=== PATIENT | male | born 1950 | race Caucasian/White ===

== ENCOUNTER → 2016-06-20 | Outpatient (CLI) | payer MEDICARE, OTHER ==
[~2016-06-20] MED LIST: ISOVUE-370 76% 100ML VIAL (Q9967) As Ordered ONE
--- NOTE | 2016-06-20 11:05 | REP ---
Clinical: Pulmonary nodule. Comparison: None. Technique: Axial contrast enhanced images from the thoracic inlet to the upper abdomen using 100 ml Isovue 370 intravenous contrast material with coronal and sagittal re-formations. Findings: The bilateral lung rodriguez are well-aerated, symmetric, and clear. No acute pulmonary parenchymal consolidation, nodule or mass lesion is appreciated. No pleural effusion/reaction or pneumothorax. The mediastinum demonstrates normal heart/pericardium and thoracic aorta. No axillary, hilar, or mediastinal adenopathy. Tracheobronchial tree is patent. Thyroid gland is unremarkable. Evidence for old healed posteromedial right rib fractures. Upper abdomen demonstrates normal bilateral adrenal glands. Impression: Normal contrast enhanced chest CT. No pulmonary nodule identified. No acute mediastinal or pleuroparenchymal process. Evidence for old healed posteromedial right rib fractures. Signed by Asif Ellison MD 06/20/2016 10:57 A
--- NOTE | 2016-06-20 11:09 | REP ---
Clinical: Chronic medical renal disease. Technique: Real time orta scale and color evaluation using curved array transducer. Findings: The kidneys are normal in contour, size, echogenicity, and reniform shape without hydronephrosis, nephrolithiasis, cystic or renal mass lesion. No perinephric fluid collections are identified. Mildly prominent central sinus fat is appreciated bilaterally and consistent with chronic medical renal disease. Right kidney measures 11.0 x 6.4 x 5.4 cm. Left kidney measures 12.6 x 4.8 x 6.2 cm. Bladder is under distended but grossly unremarkable. Enlarged heterogeneous prostate gland measures 5.8 cm maximal diameter. Impression: 1. Evidence for chronic medical renal disease without hydronephrosis or cystic changes. 2. Enlarged heterogeneous prostate gland. Signed by Asif Ellison MD 06/20/2016 11:01 A
--- NOTE | 2016-06-20 11:13 | REP ---
Clinical: Bilateral inguinal pain. Technique: Real time orta scale and color Doppler evaluation using linear high frequency transducer. Findings: The testicles demonstrate bilateral prominent rete testis with cystic changes measuring up to 10 mm in the left testicle and 6 mm in the right testicle. The bilateral testicles and epididymi are otherwise normal in contour, size, echogenicity, and vascularity without torsion, acute infectious/inflammatory process, or mass lesion. Mild bilateral hydroceles are likely chronic. Bilateral partially thrombosed varicoceles noted measuring up to 4.6 mm diameter. Small fat containing inguinal hernias noted bilaterally. Right testicle measures 5.0 x 2.5 x 3.4 cm. Left testicle measures 4.8 x 2.5 x 3.3 cm Impression: 1. Prominent right date testes with cystic changes along with mild bilateral hydroceles and partially thrombosed varicoceles likely representing chronic nonacute changes. 2. Small fat containing bilateral inguinal hernias. Signed by Asif Ellison MD 06/20/2016 11:05 A
== END ==
LOC: M RAD 09:14
PROVIDERS: ATTEND Family Medicine
DX: N18.3 Chronic kidney disease, stage 3 (moderate) (principal); N45.1 Epididymitis; R91.1 Solitary pulmonary nodule; N40.0 Benign prostatic hyperplasia without lower urinary tract symptoms; K40.90 Unilateral inguinal hernia, without obstruction or gangrene, not specified as recurrent; N50.9 Disorder of male genital organs, unspecified
CPT/HCPCS: 71260; 76775; 76857; 76870; 93976; Q9967

== ENCOUNTER → 2016-07-11 | Outpatient (CLI) | payer MEDICARE, OTHER | LOC: M LAB 13:52 | PROVIDERS: ATTEND Nurse Practitioner Family | DX: Z12.5 Encounter for screening for malignant neoplasm of prostate (principal) | CPT/HCPCS: 36415; G0103 ==

== ENCOUNTER → 2016-07-17 | Outpatient (CLI) | payer MEDICARE, OTHER ==
[~2016-07-17] MED LIST changes: +ALFU10TA2 PO; +ASPI81TA85 PO; +B-12500T2 PO; +BENI40TA7 PO; -ISOVUE-370 76% 100ML VIAL (Q9967) As Ordered ONE; +LEVO100T5 PO; +METF500T PO; +ROSU10TA PO; +VITA1CAP25 PO; +VITA2000 PO; +[UNRECOGNIZED DRUG - CODE] PO
--- NOTE | 2016-07-17 16:50 | ECGEPIP ---
Stationary ECG Study [facility] Test Date: 2016-07-17 Pat Name: IRMA KUO Department: Room: - Gender: M Health And Wellness Manager: : 1950 Requested By: Jose Blanco Order Number: [id number] Reading MD: Lupe Martínez Measurements Intervals [place] Rate: 53 P: 19 TX: 209 QRS: -36 QRSD: 109 T: 51 QT: 415 QTc: 390 Interpretive Statements SINUS BRADYCARDIA FIRST DEGREE BLOCK MARKED LEFT AXIS DEVIATION Left anterior fascicular block NO PRIOR Electronically Signed On 07-17-2016 16:49:45 EST by Lupe Martínez
== END ==
LOC: M EKG 15:34
PROVIDERS: ATTEND Anesthesiology
DX: I10 Essential (primary) hypertension (principal)

== ENCOUNTER → 2016-07-26 | Day surgery (SDC) | payer MEDICARE, OTHER ==
[~2016-07-26] VITALS: Ht 175.3 cm; Wt 97.5 kg
[~2016-07-26] MED LIST changes: +BUPIVACAINE/EPIN 0.25% 30 ML VIAL As Ordered ONE; +BUPIVACAINE/EPIN 0.25% 30 ML VIAL XX ONE; +GLYCOPYRROLATE INJ 0.2 MG/ML 2 ML VIAL As Ordered ONE; +LR 1,000 ML IV SCH; +METOCLOPRAMIDE INJ 10MG/2ML VIAL (J2765) As Ordered ONE; +MIDAZOLAM INJ 2 MG/2 ML VIAL (J2250) As Ordered ONE; +MORPHINE 2 MG/ML 1ML SYRINGE IV PRN; +NEOSTIGMINE 1MG/ML 5 ML SYRINGE (J2710) As Ordered ONE; +NORCO, ANEXSIA 5/325MG TABLET (HYDROcodone/ACETAMINOPHEN) PO PRN; +ONDANSETRON 4MG/2ML VIAL (J2405) IV PRN; +PERCOCET 5MG/325MG TAB PO PRN; +ceFAZolin SOD 1 GM in D5W MINI-BAG PLUS 50 ML IV ONE; +dexameTHASONE 4 MG/ML 1ML VIAL (J1100) As Ordered ONE; +fentaNYL 100 MCG/2 ML INJECTION (J3010) IV PRN; +fentaNYL 250 MCG/5 ML INJECTION (J3010) As Ordered ONE
[2016-07-26 13:25] VITALS: BP 128/70
--- NOTE | 2016-07-26 16:51 | RO ---
DATE OF PROCEDURE: 07/26/2016 PREPROCEDURE DIAGNOSIS: Bilateral inguinal hernias. POSTPROCEDURE DIAGNOSIS: Bilateral inguinal hernias (indirect/lipoma of the cord). OPERATIVE PROCEDURE: Laparoscopic bilateral inguinal hernia repair (TEPP). SURGEON: Chauncey Evans MD EARLY MORNING: ANESTHESIA: General endotracheal. ESTIMATED BLOOD LOSS: Minimal. FLUIDS: Crystalloid. DESCRIPTION OF PROCEDURE: The patient was brought to the operating room and was given general anesthesia. After adequate anesthesia and preoperative antibiotics were given, the patient was prepped and draped in the usual sterile fashion. Next a periumbilical incision was made with skin knife. Blunt dissection was carried down to the fascia. The fascia was incised longitudinally with electrocautery. The rectus muscle was retracted anteriorly and laterally and the balloon dissector was placed in the preperitoneal space, insulated under direct visualization. A stationary balloon was placed in the infraumbilical site and insufflated to 15 mm of pressure and two 5 mm trocars were placed along the midline. Next, the loose areolar tissue in the left inguinal area was taken down using cautery. This was taken down off Coopers toward the internal ring. The patient had a great deal of fatty tissue in general and thus the valley between the bladder and the vessels was a little bit difficult to obtain and move the fatty tissue out of the way and there was also a persistent posterior fascia semi erect line of Royce which was a lot lower than expected and finished at the internal ring. Thus, this needed to be incised, the fascia in this area to open up in the preperitoneal space and then attention was toward the cord structures. Cord structures were evaluated and there was a small lipoma of the cord that was mobilized back into the preperitoneal space. It was not transected at its base. There was the peritoneum which was eventually mobilized off the surrounding tissue and then mobilized of the vas where the vas dove deep into the pelvis. Once the valley between the vessels and the bladder was made slightly deeper to allow for the mesh to be placed adequately, the right inguinal area was dissected out. There was a much larger lipoma of the cord on the right side. This eventually was mobilized out of the cord structures. There was no significant internal hernia on the side. The peritoneum was mobilized down off the cord structures and the vas where it dove deep into the pelvis. Once again, the valley between the vessels and the bladder was created using the hook cautery on the loose areolar tissue and posterior to the Jasvir's ligament. The right medium sized maximum mesh was tacked in with a AbsorbaTack and was in good placement. This tacked along Jasvir's pubis laterally on the tail and anteriorly on the rectus muscle. This was repeated on the left hand side, however, a small vessel was tacked on Coopers and caused some oozing in that area. This was irrigated until it seemed relatively clear, but was slightly moister than I would like it to be. No significant oozing was appreciated, but I did put some fibrin glue in this area after the 3D Max mesh medium was placed in the left inguinal area. This was tacked in as I stated previously with AbsorbaTack. The preperitoneal space was desufflated under direct visualization. #0 Vicryl was used to close the fascia at the umbilicus and all incisions were closed with #4-0 Vicryl. Steri-Strips and a dry sterile dressing was applied. The patient was awakened, extubated and brought to the recovery room awake, alert and hemodynamically stable. Sponge and needle counts correct times two.
== END | disposition home or self-care (01) ==
LOC: M SDC 06:45
PROVIDERS: ATTEND Surgery
DX: K40.20 Bilateral inguinal hernia, without obstruction or gangrene, not specified as recurrent (principal); D17.6 Benign lipomatous neoplasm of spermatic cord; E11.9 Type 2 diabetes mellitus without complications; E78.5 Hyperlipidemia, unspecified; E03.9 Hypothyroidism, unspecified; I10 Essential (primary) hypertension; Z79.82 Long term (current) use of aspirin; Z79.899 Other long term (current) drug therapy; Z87.891 Personal history of nicotine dependence
CPT/HCPCS: 49650; A6024; C1781; J0690; J1100; J2250; J2710; J2765; J3010

== ENCOUNTER → 2016-08-28 | Outpatient (REF) | payer MEDICARE, OTHER ==
[~2016-08-28] MED LIST changes: -BUPIVACAINE/EPIN 0.25% 30 ML VIAL As Ordered ONE; -BUPIVACAINE/EPIN 0.25% 30 ML VIAL XX ONE; +CRES10TA32 PO; -GLYCOPYRROLATE INJ 0.2 MG/ML 2 ML VIAL As Ordered ONE; -LR 1,000 ML IV SCH; -METOCLOPRAMIDE INJ 10MG/2ML VIAL (J2765) As Ordered ONE; -MIDAZOLAM INJ 2 MG/2 ML VIAL (J2250) As Ordered ONE; -MORPHINE 2 MG/ML 1ML SYRINGE IV PRN; -NEOSTIGMINE 1MG/ML 5 ML SYRINGE (J2710) As Ordered ONE; -NORCO, ANEXSIA 5/325MG TABLET (HYDROcodone/ACETAMINOPHEN) PO PRN; -ONDANSETRON 4MG/2ML VIAL (J2405) IV PRN; -PERCOCET 5MG/325MG TAB PO PRN; -ROSU10TA PO; -ceFAZolin SOD 1 GM in D5W MINI-BAG PLUS 50 ML IV ONE; -dexameTHASONE 4 MG/ML 1ML VIAL (J1100) As Ordered ONE; -fentaNYL 100 MCG/2 ML INJECTION (J3010) IV PRN; -fentaNYL 250 MCG/5 ML INJECTION (J3010) As Ordered ONE
[2016-08-28 12:23] LABS: ALBUMIN 3.6 GM/DL (3.2-5.2); ALBUMIN/GLOBULIN RATIO 1.24 (1.00-1.93); BILIRUBIN,TOTAL 1.1 MG/DL (0.2-1.0); CALCIUM LEVEL 8.5 MG/DL (8.8-10.2); CREATININE FOR GFR 1.31 MG/DL (0.70-1.30); FREE T4 1.18 NG/DL (0.76-1.46); GLOMERULAR FILTRATION RATE 58.3 (>49); POTASSIUM SERUM 4.5 MEQ/L (3.5-5.1); TOTAL PROTEIN 6.5 GM/DL (6.4-8.2)
== END ==
LOC: M SFHCPLAZ 08:33
PROVIDERS: ATTEND Family Medicine
DX: N18.3 Chronic kidney disease, stage 3 (moderate) (principal); E03.9 Hypothyroidism, unspecified; R73.01 Impaired fasting glucose; E55.9 Vitamin D deficiency, unspecified; Z23 Encounter for immunization
CPT/HCPCS: 36415; 80053; 82306; 83036; 83970; 84439; 84443; 90670; G0009

== ENCOUNTER → 2016-10-16 | Outpatient (REF) | payer MEDICARE, OTHER ==
[2016-10-16 12:20] LABS: ALBUMIN 3.6 GM/DL (3.2-5.2); ALBUMIN/GLOBULIN RATIO 1.16 (1.00-1.93); BILIRUBIN,TOTAL 1.4 MG/DL (0.2-1.0); CALCIUM LEVEL 8.7 MG/DL (8.8-10.2); CREATININE FOR GFR 1.33 MG/DL (0.70-1.30); GLOMERULAR FILTRATION RATE 57.3 (>49); POTASSIUM SERUM 4.7 MEQ/L (3.5-5.1); TOTAL PROTEIN 6.7 GM/DL (6.4-8.2)
== END ==
LOC: M SFHCPLAZ 11:39
PROVIDERS: ATTEND Family Medicine
DX: I86.1 Scrotal varices (principal); Z12.5 Encounter for screening for malignant neoplasm of prostate
CPT/HCPCS: 36415; 80053; G0463

== ENCOUNTER → 2016-10-17 | Outpatient (CLI) | payer MEDICARE, OTHER ==
[~2016-10-17] MED LIST changes: +ISOVUE-370 76% 100ML VIAL (Q9967) As Ordered ONE
--- NOTE | 2016-10-17 15:19 | REP ---
CT ANGIOGRAM OF THE CHEST WITH IV CONTRAST: HISTORY: Ascending thoracic aortic aneurysm. Comparison CT study is from June 20, 2016. CONTRAST DOSE: 75 mL of Isovue-[address] TECHNIQUE: Helical scanning is acquired and overlapping 1.5 mm and contiguous 3 mm axial images are reformatted. In addition, a 3D work station is deployed to generate thick slab maximum intensity projection images in sagittal and coronal imaging projections. CT PULMONARY ANGIOGRAPHIC FINDINGS: There is good opacification of the thoracic aorta. It shows homogeneous enhancement and normal course. The ascending thoracic aorta at the level of the right main pulmonary artery measures 3.9 cm in AP dimension. This is unchanged from the recent prior CT study of June 20, 2016. There is also good opacification of the pulmonary arterial tree. There is no CT evidence of pulmonary embolism. There is mild vascular calcification of the transverse aorta, but no aneurysm is appreciated. Coronal and sagittal multiplanar reformation images show no additional abnormality. Great vessel origins are intact. Incidental note is made of the left vertebral artery taking a direct aortic origin which is a fairly common normal variant. The left vertebral artery is smaller and its origin is calcific. No adrenal lesion is seen. The abdominal aorta is normal in caliber. Celiac and superior mesenteric axes are patent. The right renal artery is duplicated. The left renal artery is duplicated. No renal artery stenosis is seen. The proximal inferior mesenteric artery arises at the inferior margin of the field of view and appears intact. No infiltrate, mass, or atelectasis is seen in the lung rodriguez. IMPRESSION: 1. Ascending aorta measures 3.9 cm in AP dimension. No thoracic or abdominal aortic aneurysm seen. 2. Direct origin left vertebral artery from the transverse aorta. 3. Duplicated bilateral renal arteries. Signed by Selvin Stokes MD 10/17/2016 04:00 P
== END ==
LOC: M RAD 08:12
PROVIDERS: ATTEND Family Medicine
DX: I71.2 Thoracic aortic aneurysm, without rupture (principal)
CPT/HCPCS: 71275; Q9967

== ENCOUNTER → 2017-01-14 | Outpatient (REF) | payer MEDICARE, OTHER ==
[~2017-01-14] MED LIST changes: +BENI40TA30 PO; -BENI40TA7 PO; -ISOVUE-370 76% 100ML VIAL (Q9967) As Ordered ONE; -METF500T PO; +METF500T13 PO
[2017-01-14 16:54] LABS: BASO % 0.7 % (0.0-1.0); EOS # 0.2 K/mm3 (0.0-0.50); EOS % 3.7 % (0.0-3.0); LARGE UNSTAINED CELL # 0.1 K/mm3 (0.0-0.4); LARGE UNSTAINED CELL % 1.8 % (0.0-4.0); LYMPH # 1.9 K/mm3 (1.5-4.5); MEAN CORPUSCULAR HEMOGLOBIN 30.7 pg (27.0-33.0); MEAN CORPUSCULAR HGB CONC 34.8 g/dl (32.0-36.5); MEAN CORPUSCULAR VOLUME 88.2 fl (80.0-96.0); MONO # 0.3 K/mm3 (0.0-0.8); MONO % 5.3 % (0.0-5.0); NEUTROPHILS # 2.8 K/mm3 (1.8-7.7); NEUTROPHILS % 53.5 % (36.0-66.0); PLATELET COUNT, AUTOMATED 199 k/mm3 (150-450); RED CELL DISTRIBUTION WIDTH 13.6 % (11.5-14.5); WHITE BLOOD COUNT 5.2 K/mm3 (4.0-10.0)
[2017-01-14 17:13] LABS: VITAMIN B12 LEVEL 769 PG/ML (247-911)
[2017-01-14 18:00] LABS: ALBUMIN 3.7 GM/DL (3.2-5.2); ALBUMIN/GLOBULIN RATIO 1.19 (1.00-1.93); ALKALINE PHOSPHATASE 57 U/L (45-117); ALT/SGPT 42 U/L (12-78); ANION GAP 8 MEQ/L (8-16); AST/SGOT 26 U/L (15-37); BILIRUBIN,DIRECT 0.3 MG/DL (0.0-0.2); BILIRUBIN,TOTAL 1.6 MG/DL (0.2-1.0); BLOOD UREA NITROGEN 14 MG/DL (7-18); CALCIUM LEVEL 8.6 MG/DL (8.8-10.2); CARBON DIOXIDE LEVEL 27 MEQ/L (21-32); CHLORIDE LEVEL 105 MEQ/L (98-107); CREATININE FOR GFR 1.06 MG/DL (0.70-1.30); FERRITIN 149 NG/ML (26-388); GLOMERULAR FILTRATION RATE > 60.0 (>49); GLUCOSE, FASTING 80 MG/DL (80-110); PERCENT SATURATION 49.5 % (19.7-50.0); SODIUM LEVEL 140 MEQ/L (136-145); TOTAL IRON BINDING CAPACITY 277 UG/DL (250-450); TOTAL PROTEIN 6.8 GM/DL (6.4-8.2)
[2017-01-17 11:50] LABS: PRETREATED FOLATE FOR RBCFOL 7.5 NG/ML
== END ==
LOC: M SFHCPLAZ 11:46
PROVIDERS: ATTEND Family Medicine
DX: G31.84 Mild cognitive impairment of uncertain or unknown etiology (principal); E80.4 Gilbert syndrome; E55.9 Vitamin D deficiency, unspecified; R17 Unspecified jaundice; G47.33 Obstructive sleep apnea (adult) (pediatric); N40.1 Benign prostatic hyperplasia with lower urinary tract symptoms; R73.01 Impaired fasting glucose; K63.5 Polyp of colon; I71.2 Thoracic aortic aneurysm, without rupture; K40.20 Bilateral inguinal hernia, without obstruction or gangrene, not specified as recurrent; N45.1 Epididymitis; R91.1 Solitary pulmonary nodule; I12.9 Hypertensive chronic kidney disease with stage 1 through stage 4 chronic kidney disease, or unspecified chronic kidney disease; N18.3 Chronic kidney disease, stage 3 (moderate); K21.9 Gastro-esophageal reflux disease without esophagitis; E03.9 Hypothyroidism, unspecified; E78.2 Mixed hyperlipidemia; E66.3 Overweight; Z87.891 Personal history of nicotine dependence; Z68.31 Body mass index [BMI] 31.0-31.9, adult
CPT/HCPCS: 80053; 82140; 82248; 82306; 82607; 82728; 82747; 83550; 83970; 85025; 86301; G0463

== ENCOUNTER → 2017-01-20 | Outpatient (CLI) | payer MEDICARE, OTHER ==
--- NOTE | 2017-01-20 08:56 | REP ---
Abdominal right upper quadrant ultrasound: There is no cholelithiasis, gallbladder wall thickening or pericholecystic fluid. There is no intrahepatic or extrahepatic biliary duct dilatation, the common duct measures 4.4 mm in diameter. There is mild hepatic parenchymal echogenicity compatible with hepato steatosis. There is no hepatic mass. The visualized portion of the pancreatic head is unremarkable. The pancreatic body and tail are obscured by bowel gas. The right kidney is normal size measuring 10.9 cm craniocaudad length. There is no right renal calculus, mass, cyst or hydronephrosis. Impression: Mild hepatic parenchymal echogenicity compatible with hepato steatosis. Otherwise, negative right upper quadrant ultrasound. The body and tail of the pancreas are obscured by bowel gas. Signed by Rony Caicedo MD 01/20/2017 08:47 A
== END ==
LOC: M RAD 07:42
PROVIDERS: ATTEND Family Medicine
DX: E80.4 Gilbert syndrome (principal)

== ENCOUNTER → 2017-01-20 | Outpatient (CLI) | payer MEDICARE, OTHER ==
--- NOTE | 2017-01-23 13:22 | SLEEPHOME ---
DATE OF STUDY: 01/20/2017 ORDERED BY: Dr. Miller Diagnostic home sleep testing was performed due to concern for the obstructive sleep apnea. For testing, a NOX-T3 respiratory monitoring device was used. Continuous record was made of pulse, oxygen saturation, chest and abdominal strain, and body position. 9 hours and 59 minutes of data were reviewed. There were 7 hours and 5 minutes identified as time in bed. During the interval marked time in bed, there were 114 respiratory events identified of 10 seconds in duration or greater for a respiratory event index of 16.1. The events were primarily obstructive. Baseline pulse rate was 49 beats per minute. Pulse rate ranged 35 to 70. Baseline saturation 90.5%. Lowest oxygen saturation 84%. Testing was performed in both the supine and nonsupine positions. IMPRESSION: Abnormal home sleep testing with repetitive respiratory events and oxygen desaturation to 84% with a respiratory event index of 16.1 is consistent with the obstructive sleep apnea syndrome. RECOMMENDATION: The patient should be referred for a formal sleep evaluation and in-laboratory pressure titration given the significant oxygen desaturations and frequency of event.
== END ==
LOC: M SLEEP HO 08:14
PROVIDERS: ATTEND Family Medicine
DX: G47.33 Obstructive sleep apnea (adult) (pediatric) (principal)
CPT/HCPCS: 76705; G0399

== ENCOUNTER → 2017-02-12 | Outpatient (CLI) | payer MEDICARE, OTHER ==
--- NOTE | 2017-02-12 16:32 | REP ---
Clinical: Abdominal pain with elevated bilirubin levels. Technique: Standard noncontrast MRCP sequencing. Findings: The gallbladder, intrahepatic and extrahepatic biliary ductal system is normal. No gallstones, choledocholithiasis, pericholecystic inflammatory changes/fluid or other biliary tract abnormalities identified. Small left renal cysts measure up to 15 mm. Impression: Essentially normal MRCP examination. Signed by Asif Ellison MD 02/12/2017 04:23 P
== END ==
LOC: M RAD 14:47
PROVIDERS: ATTEND Family Medicine
DX: R17 Unspecified jaundice (principal); N28.1 Cyst of kidney, acquired

== ENCOUNTER → 2017-04-24 | Outpatient (REF) | payer MEDICARE, OTHER | LOC: M SFHCPLAZ 10:59 | PROVIDERS: ATTEND Family Medicine | DX: G45.4 Transient global amnesia (principal); E03.9 Hypothyroidism, unspecified; K21.9 Gastro-esophageal reflux disease without esophagitis; N18.3 Chronic kidney disease, stage 3 (moderate); E11.40 Type 2 diabetes mellitus with diabetic neuropathy, unspecified; E55.9 Vitamin D deficiency, unspecified; E78.2 Mixed hyperlipidemia; Z23 Encounter for immunization | CPT/HCPCS: 36415; 86850; 86900; 86901; 90662; G0008 ==

== ENCOUNTER → 2017-06-20 | Outpatient (CLI) | payer MEDICARE ==
[2017-06-20 09:44] LABS: ALBUMIN 3.7 GM/DL (3.2-5.2); ALBUMIN/GLOBULIN RATIO 1.16 (1.00-1.93); ALKALINE PHOSPHATASE 67 U/L (45-117); ALT/SGPT 37 U/L (12-78); ANION GAP 4 MEQ/L (8-16); AST/SGOT 29 U/L (7-37); BILIRUBIN,TOTAL 1.3 MG/DL (0.2-1.0); BLOOD UREA NITROGEN 16 MG/DL (7-18); C REACTIVE PROTEIN QUANTITATIV < 0.30 MG/DL (0.00-0.30); CALCIUM LEVEL 8.6 MG/DL (8.8-10.2); CARBON DIOXIDE LEVEL 30 MEQ/L (21-32); CHLORIDE LEVEL 106 MEQ/L (98-107); CHOLESTEROL LEVEL 143 MG/DL (<200); CHOLESTEROL RISK RATIO 3.325 (<5); CPK CREATINE PHOSPHOKINASE 130 U/L (39-308); CREATININE FOR GFR 1.31 MG/DL (0.70-1.30); FREE T4 1.11 NG/DL (0.76-1.46); GLOMERULAR FILTRATION RATE 58.1 (>49); GLUCOSE, FASTING 107 MG/DL (80-110); HDL CHOLESTEROL 43 MG/DL (>40); LDL CHOLESTEROL 61.6 MG/DL (<100); NON-HDL-C 100 MG/DL; POTASSIUM SERUM 4.2 MEQ/L (3.5-5.1); SODIUM LEVEL 140 MEQ/L (136-145); TOTAL PROTEIN 6.9 GM/DL (6.4-8.2); TRIGLYCERIDES LEVEL 192 MG/DL (<150)
[2017-06-20 09:45] LABS: ESTIMATED AVERAGE GLUCOSE 123 MG/DL (60-110); HEMOGLOBIN A1c 5.9 %
== END ==
LOC: M LAB 08:27
DX: E78.2 Mixed hyperlipidemia (principal); R17 Unspecified jaundice; E03.9 Hypothyroidism, unspecified; R73.01 Impaired fasting glucose
CPT/HCPCS: 82550

== ENCOUNTER 2017-08-07 14:39 | Inpatient (IN) | payer MEDICARE, OTHER ==
[~2017-08-07 14:39] MED LIST changes: +ACETAMINOPHEN TAB 650MG DOSE (2X325MG) PO; -ALFU10TA2 PO; -ASPI81TA85 PO; -B-12500T2 PO; -BENI40TA30 PO; -CRES10TA32 PO; -LEVO100T5 PO; -METF500T13 PO; -VITA1CAP25 PO; -VITA2000 PO; -[UNRECOGNIZED DRUG - CODE] PO
[2017-08-07 15:47] LABS: BASO % 0.7 % (0.0-1.0); EOS # 0.2 10^3/uL (0.0-0.50); HEMATOCRIT 43.5 % (42.0-52.0); IMMATURE GRANULOCYTE % 0.2 % (0-3.0); LYMPH % 35.6 % (24.0-44.0); MEAN CORPUSCULAR HGB CONC 34.5 g/dl (32.0-36.5); MONO # 0.4 10^3/uL (0.0-0.8); MONO % 7.7 % (0.0-5.0); NEUTROPHILS % 52.8 % (36.0-66.0); PLATELET COUNT, AUTOMATED 202 10^3/uL (150-450); RED CELL DISTRIBUTION WIDTH 13.2 % (11.5-14.5); WHITE BLOOD COUNT 5.6 10^3/uL (4.0-10.0)
[2017-08-07 16:06] LABS: INR 1.03; PROTHROMBIN TIME 13.6 SECONDS (12.4-14.5)
[2017-08-07 16:20] LABS: ALBUMIN 3.5 GM/DL (3.2-5.2); ALBUMIN/GLOBULIN RATIO 1.25 (1.00-1.93); ALKALINE PHOSPHATASE 60 U/L (45-117); ALT/SGPT 38 U/L (12-78); ANION GAP 8 MEQ/L (8-16); AST/SGOT 30 U/L (7-37); BILIRUBIN,TOTAL 1.6 MG/DL (0.2-1.0); BLOOD UREA NITROGEN 16 MG/DL (7-18); CALCIUM LEVEL 8.2 MG/DL (8.8-10.2); CARBON DIOXIDE LEVEL 26 MEQ/L (21-32); CHLORIDE LEVEL 107 MEQ/L (98-107); CHOLESTEROL LEVEL 141 MG/DL (< 200); CPK CREATINE PHOSPHOKINASE 250 U/L (39-308); CREATININE FOR GFR 1.12 MG/DL (0.70-1.30); FREE T4 1.12 NG/DL (0.76-1.46); GLOMERULAR FILTRATION RATE > 60.0 (>49); GLUCOSE, FASTING 129 MG/DL (70-100); LDH LACTATE DEHYDROGENASE 172 U/L (87-241); PHOSPHORUS LEVEL 3.5 MG/DL (2.5-4.9); POTASSIUM SERUM 3.8 MEQ/L (3.5-5.1); SODIUM LEVEL 141 MEQ/L (136-145); TOTAL PROTEIN 6.3 GM/DL (6.4-8.2); TRIGLYCERIDES LEVEL 284 MG/DL (<150); TROPONIN I < 0.02 NG/ML (< 0.10)
[2017-08-07 16:26] LABS: CK-MB VALUE MASS 2.8 NG/ML (0.0-3.6); MB/CK RELATIVE INDEX 1.12 (< OR =4)
[2017-08-07] MEDS: metFORMIN XR 500MG TAB *GLUCOPHAGE XR PO (17:43)
[2017-08-07] MEDS ORDERED: SLF 3 ML SYR IV (17:45)
[2017-08-07] MEDS: SLF 3 ML SYR IV (22:00)
[2017-08-07 22:05] LABS: CPK CREATINE PHOSPHOKINASE 191 U/L (39-308); TROPONIN I < 0.02 NG/ML (< 0.10)
[2017-08-07 22:08] LABS: CK-MB VALUE MASS 2.1 NG/ML (0.0-3.6); MB/CK RELATIVE INDEX 1.09 (< OR =4)
[2017-08-08 05:23] LABS: ALBUMIN/GLOBULIN RATIO 1.03 (1.00-1.93); ALKALINE PHOSPHATASE 64 U/L (45-117); ALT/SGPT 33 U/L (12-78); ANION GAP 6 MEQ/L (8-16); AST/SGOT 24 U/L (7-37); BILIRUBIN,TOTAL 1.1 MG/DL (0.2-1.0); BLOOD UREA NITROGEN 14 MG/DL (7-18); CALCIUM LEVEL 8.1 MG/DL (8.8-10.2); CARBON DIOXIDE LEVEL 28 MEQ/L (21-32); CHLORIDE LEVEL 109 MEQ/L (98-107); CK-MB VALUE MASS 1.7 NG/ML (0.0-3.6); CPK CREATINE PHOSPHOKINASE 142 U/L (39-308); CREATININE FOR GFR 1.14 MG/DL (0.70-1.30); GLOMERULAR FILTRATION RATE > 60.0 (>49); GLUCOSE, FASTING 103 MG/DL (70-100); MB/CK RELATIVE INDEX 1.19 (< OR =4); POTASSIUM SERUM 3.9 MEQ/L (3.5-5.1); SODIUM LEVEL 143 MEQ/L (136-145); TOTAL PROTEIN 5.9 GM/DL (6.4-8.2); TROPONIN I < 0.02 NG/ML (< 0.10)
[2017-08-08] MEDS: LEVOTHYROXINE 100MCG TABLET (0.1MG) PO (05:37)
[2017-08-08] MEDS: SLF 3 ML SYR IV ×3 (05:39→20:17)
[2017-08-08] MEDS: metFORMIN XR 500MG TAB *GLUCOPHAGE XR PO (08:00)
[2017-08-08] MEDS: OLMESARTAN MEDOXOMIL 20 MG TAB (BENICAR) PO (08:47)
[2017-08-08] MEDS: ROSUVASTATIN 10 MG TAB (CRESTOR) PO (08:47)
[2017-08-08] MEDS: ASPIRIN 81 MG ENTERIC TAB PO (08:47)
[2017-08-09] MEDS: SLF 3 ML SYR IV (06:00)
[2017-08-09] MEDS: LEVOTHYROXINE 100MCG TABLET (0.1MG) PO (06:00)
[2017-08-09] MEDS: ROSUVASTATIN 10 MG TAB (CRESTOR) PO (07:50)
[2017-08-09] MEDS: metFORMIN XR 500MG TAB *GLUCOPHAGE XR PO (07:51)
[2017-08-09] MEDS: ASPIRIN 81 MG ENTERIC TAB PO (07:51)
[2017-08-09] MEDS: OLMESARTAN MEDOXOMIL 20 MG TAB (BENICAR) PO (07:51)
[2017-08-09 08:08] LABS: HEMATOCRIT 44.2 % (42.0-52.0); HEMOGLOBIN 15.3 g/dl (14.0-18.0); MEAN CORPUSCULAR HEMOGLOBIN 30.3 pg (27.0-33.0); MEAN CORPUSCULAR HGB CONC 34.6 g/dl (32.0-36.5); MEAN CORPUSCULAR VOLUME 87.5 fl (80.0-96.0); PLATELET COUNT, AUTOMATED 208 10^3/uL (150-450); RED BLOOD COUNT 5.05 10^6/uL (4.30-6.10); RED CELL DISTRIBUTION WIDTH 13.3 % (11.5-14.5); WHITE BLOOD COUNT 5.6 10^3/uL (4.0-10.0)
[2017-08-09 08:26] LABS: ANION GAP 3 MEQ/L (8-16); BLOOD UREA NITROGEN 12 MG/DL (7-18); CALCIUM LEVEL 8.4 MG/DL (8.8-10.2); CARBON DIOXIDE LEVEL 31 MEQ/L (21-32); CHLORIDE LEVEL 108 MEQ/L (98-107); CREATININE FOR GFR 1.18 MG/DL (0.70-1.30); GLOMERULAR FILTRATION RATE > 60.0 (>49); GLUCOSE, FASTING 99 MG/DL (70-100); POTASSIUM SERUM 4.9 MEQ/L (3.5-5.1); SODIUM LEVEL 142 MEQ/L (136-145)
[2017-08-10 00:07] LABS: Lyme Disease IgG/IgM Antibodie <0.91 ISR (0.00-0.90); Lyme Disease IgM Ab Quantitati <0.80 index (0.00-0.79)
== END 2017-08-09 10:15 | disposition home or self-care (01) | DRG 312 ==
LOC: M PCU 14:39
DX: R55 Syncope and collapse (principal); I45.2 Bifascicular block; N18.3 Chronic kidney disease, stage 3 (moderate); K21.9 Gastro-esophageal reflux disease without esophagitis; I12.9 Hypertensive chronic kidney disease with stage 1 through stage 4 chronic kidney disease, or unspecified chronic kidney disease; E78.2 Mixed hyperlipidemia; E03.9 Hypothyroidism, unspecified; Z79.82 Long term (current) use of aspirin; Z79.84 Long term (current) use of oral hypoglycemic drugs; Z87.891 Personal history of nicotine dependence

== ENCOUNTER → 2017-10-31 | Outpatient (CLI) | payer MEDICARE, OTHER | LOC: M RAD 13:20 | DX: I71.4 Abdominal aortic aneurysm, without rupture (principal) ==

== ENCOUNTER → 2017-11-10 | Outpatient (REF) | payer MEDICARE, OTHER ==
[2017-11-10 16:30] LABS: BASO # 0.1 10^3/uL (0.0-0.2); BASO % 0.7 % (0.0-1.0); EOS # 0.2 10^3/uL (0.0-0.50); EOS % 3.2 % (0.0-3.0); ESTIMATED AVERAGE GLUCOSE 117 MG/DL (60-110); HEMATOCRIT 44.7 % (42.0-52.0); HEMOGLOBIN 15.4 g/dl (13.5-17.5); HEMOGLOBIN A1c 5.7 %; IMMATURE GRANULOCYTE % 0.1 % (0-3.0); LYMPH % 28.7 % (24.0-44.0); MEAN CORPUSCULAR HGB CONC 34.5 g/dl (32.0-36.5); MONO # 0.5 10^3/uL (0.0-0.8); MONO % 7.8 % (0.0-5.0); NEUTROPHILS # 4.1 10^3/uL (1.8-7.7); NEUTROPHILS % 59.5 % (36.0-66.0); PLATELET COUNT, AUTOMATED 239 10^3/uL (150-450); RED BLOOD COUNT 5.14 10^6/uL (4.30-6.10); RED CELL DISTRIBUTION WIDTH 13.3 % (11.5-14.5); RETIC HEMOGLOBIN EQUIVALENT 35.8 pg (24-36); RETICULOCYTE # 66.8 10^9/L (17-77); RETICULOCYTE % 1.3 % (0.5-1.5); WHITE BLOOD COUNT 6.9 10^3/uL (4.0-10.0)
[2017-11-10 16:35] LABS: ALBUMIN 3.4 GM/DL (3.2-5.2); ALBUMIN/GLOBULIN RATIO 1.21 (1.00-1.93); ALKALINE PHOSPHATASE 70 U/L (45-117); ALT/SGPT 41 U/L (12-78); ANION GAP 6 MEQ/L (8-16); AST/SGOT 34 U/L (7-37); BILIRUBIN,DIRECT 0.3 MG/DL (0.0-0.2); BILIRUBIN,TOTAL 1.3 MG/DL (0.2-1.0); BLOOD UREA NITROGEN 15 MG/DL (7-18); CALCIUM LEVEL 8.6 MG/DL (8.8-10.2); CARBON DIOXIDE LEVEL 26 MEQ/L (21-32); CHLORIDE LEVEL 109 MEQ/L (98-107); CREATININE FOR GFR 1.05 MG/DL (0.70-1.30); FREE T4 0.99 NG/DL (0.76-1.46); GLOMERULAR FILTRATION RATE > 60.0 (>49); GLUCOSE, FASTING 90 MG/DL (70-100); POTASSIUM SERUM 4.2 MEQ/L (3.5-5.1); SODIUM LEVEL 141 MEQ/L (136-145); TOTAL PROTEIN 6.2 GM/DL (6.4-8.2)
[2017-11-12 14:17] LABS: INSULIN LEVEL 23.4 uIU/mL (2.6-24.9)
== END ==
LOC: M SFHCPLAZ 13:14
DX: N18.3 Chronic kidney disease, stage 3 (moderate) (principal); E53.8 Deficiency of other specified B group vitamins; E03.9 Hypothyroidism, unspecified; R73.01 Impaired fasting glucose
CPT/HCPCS: 82248

== ENCOUNTER → 2018-03-23 | Outpatient (REF) | payer MEDICARE, OTHER ==
[2018-03-23 13:15] LABS: BASO % 0.7 % (0.0-1.0); EOS # 0.3 10^3/uL (0.0-0.50); EOS % 5.1 % (0.0-3.0); HEMATOCRIT 49.8 % (42.0-52.0); HEMOGLOBIN 16.9 g/dl (13.5-17.5); IMMATURE GRANULOCYTE % 0.4 % (0-3.0); LYMPH # 1.8 10^3/uL (1.5-4.5); LYMPH % 33.3 % (24.0-44.0); MEAN CORPUSCULAR HEMOGLOBIN 30.2 pg (27.0-33.0); MEAN CORPUSCULAR HGB CONC 33.9 g/dl (32.0-36.5); MEAN CORPUSCULAR VOLUME 89.1 fl (80.0-96.0); MONO # 0.5 10^3/uL (0.0-0.8); MONO % 8.5 % (0.0-5.0); NEUTROPHILS # 2.8 10^3/uL (1.8-7.7); PLATELET COUNT, AUTOMATED 218 10^3/uL (150-450); RED BLOOD COUNT 5.59 10^6/uL (4.30-6.10); RED CELL DISTRIBUTION WIDTH 13.2 % (11.5-14.5); WHITE BLOOD COUNT 5.4 10^3/uL (4.0-10.0)
[2018-03-23 13:17] LABS: APPEARANCE, URINE CLEAR (CLEAR); BACTERIA, URINE AUTO NEGATIVE (NEGATIVE); BILIRUBIN, URINE AUTO NEGATIVE (NEGATIVE); BLOOD, URINE BLOOD NEGATIVE (NEGATIVE); COLOR, URINE YELLOW (YELLOW); GLUCOSE, URINE (UA) AUTO NEGATIVE (NEGATIVE); KETONE, URINE AUTO NEGATIVE (NEGATIVE); LEUKOCYTE ESTERASE, URINE AUTO NEGATIVE (NEGATIVE); MUCUS, URINE SMALL (NEGATIVE); NITRITE, URINE AUTO NEGATIVE (NEGATIVE); PROTEIN, URINE AUTO 3+ mg/dL (NEGATIVE); RBC, URINE AUTO 0 /HPF (0-3); SQUAMOUS EPITHELIAL CELL UR AU 0 /HPF (0-6); UROBILINOGEN, URINE AUTO 0.2 mg/dL (0.0-2.0); WBC, URINE AUTO 1 /HPF (0-3)
[2018-03-23 13:21] LABS: HEMATOCRIT 49.8 % (42.0-52.0)
[2018-03-23 13:45] LABS: ALBUMIN 3.5 GM/DL (3.2-5.2); ALKALINE PHOSPHATASE 71 U/L (45-117); ALT/SGPT 38 U/L (12-78); ANION GAP 7 MEQ/L (8-16); AST/SGOT 26 U/L (7-37); BILIRUBIN,TOTAL 1.3 MG/DL (0.2-1.0); BLOOD UREA NITROGEN 18 MG/DL (7-18); CALCIUM LEVEL 8.5 MG/DL (8.8-10.2); CARBON DIOXIDE LEVEL 27 MEQ/L (21-32); CHLORIDE LEVEL 107 MEQ/L (98-107); CREATININE FOR GFR 1.21 MG/DL (0.70-1.30); GLOMERULAR FILTRATION RATE > 60.0 (>49); GLUCOSE, FASTING 86 MG/DL (70-100); MAGNESIUM LEVEL 2.2 MG/DL (1.8-2.4); POTASSIUM SERUM 4.6 MEQ/L (3.5-5.1); SODIUM LEVEL 141 MEQ/L (136-145); TOTAL PROTEIN 6.2 GM/DL (6.4-8.2)
[2018-03-23 13:46] LABS: ESTIMATED AVERAGE GLUCOSE 114 MG/DL (60-110); HEMOGLOBIN A1c 5.6 %
[2018-03-24 10:44] LABS: PRETREATED FOLATE FOR RBCFOL 11.7 NG/ML; RBC FOLATE 493.4 NG/ML (280-791)
[2018-03-24 12:49] LABS: ALBUMIN % 60.2 % (55.8-66.1); ALPHA-2-GLOBULINS % 11.4 % (7.1-11.8); BETA-1-GLOBULINS % 5.8 % (4.7-7.2); BETA-2-GLOBULINS % 5.1 % (3.2-6.5)
[2018-03-24 12:50] LABS: ALBUMIN 3.73 GM/DL (3.29-5.55); ALPHA-1-GLOBULINS 0.25 GM/DL (0.17-0.41); ALPHA-2-GLOBULINS 0.71 GM/DL (0.42-0.99); BETA-1-GLOBULINS 0.36 GM/DL (0.28-0.60); BETA-2-GLOBULINS 0.32 GM/DL (0.19-0.55); GAMMA GLOBULIN % 13.5 % (11.1-18.8); GAMMA GLOBULINS 0.84 GM/DL (0.65-1.58)
== END ==
LOC: M SFHCPLAZ 10:01
DX: N18.3 Chronic kidney disease, stage 3 (moderate) (principal); R73.01 Impaired fasting glucose; E53.8 Deficiency of other specified B group vitamins; R17 Unspecified jaundice
CPT/HCPCS: 83735

== ENCOUNTER → 2018-04-13 | Outpatient (CLI) | payer MEDICARE, OTHER | LOC: M SLEEP HO 14:40 | DX: G47.33 Obstructive sleep apnea (adult) (pediatric) (principal) | CPT/HCPCS: G0399 ==

== ENCOUNTER → 2018-04-17 | Outpatient (CLI) | payer MEDICARE, OTHER ==
[~2018-04-17] MED LIST changes: -ACETAMINOPHEN TAB 650MG DOSE (2X325MG) PO; +ISOVUE-370 76% 100ML VIAL (Q9967) As Ordered
== END ==
LOC: M RAD 07:45
DX: I77.811 Abdominal aortic ectasia (principal)
CPT/HCPCS: Q9967

== ENCOUNTER → 2018-07-01 | Outpatient (CLI) | payer MEDICARE, OTHER ==
[~2018-07-01] MED LIST changes: +ALFU10TA2 PO; +ASPI81TA85 PO; +B-1210009 PO; +B-12500T2 PO; +BENI1TAB3 PO; +BENI40TA30 PO; +CRES10TA32 PO; -ISOVUE-370 76% 100ML VIAL (Q9967) As Ordered; +LEVO100T5 PO; +METF500T13 PO; +VITA100066 PO; +VITA1CAP25 PO; +VITA2000 PO; +[UNRECOGNIZED DRUG - CODE] PO
--- NOTE | 2018-07-03 12:59 | SLEEPCENT ---
DATE OF PROCEDURE: 07/01/2018 Nocturnal polysomnography was performed for the titration of pressure therapy in this patient with a clinical diagnosis of obstructive sleep apnea syndrome confirmed by home testing revealing a respiratory event index of 9.2. For testing the patient was fit with a ResMed Quattro full face mask of medium size; 4 cm of water pressure were applied to the circuit and the lights were extinguished. 6 hours and 2 minutes of data were reviewed. There were 197 minutes of sleep identified. Sleep latency was prolonged at 29 minutes. Rapid eye movement (REM) latency was short at 55 minutes. Sleep architecture was fair. Overall sleep efficiency was 55.3%. There were 2 REM cycles noted. The patient's electrocardiogram showed a sinus rhythm with average heart rate of 44 beats per minute. Rate ranged 40-58. EEG showed reasonably normal waveforms for awake and sleep stages. Persistent respiratory patterning prompted an increase in CPAP pressure. At a pressure +6, the patient had some mild hypopneic patterning in the supine posture. There was significant leg and limb movement activity throughout the entire study. limb movement arousal index was borderline at 8.5. Testing was stopped at the patient's request shortly after 2 a.m. IMPRESSION: 1. Obstructive sleep apnea syndrome (G47.33). 2. Possible periodic limb movement disorder (G47.61). Limb movement arousal index 8.5. RECOMMENDATIONS: Based on this study, initiation of CPAP at a pressure of +6 may be sufficient to address the patient's respiratory events particularly if he is able to avoid the supine posture. Should sleep symptoms persist, interventions to reduce the frequency arousal from limb activity may be helpful. Given the short duration of time for titration if clinical response is not forthcoming a second full night for titration may be helpful.
== END ==
LOC: M SLEEP 19:44
PROVIDERS: ATTEND Physician Assistant
DX: G47.33 Obstructive sleep apnea (adult) (pediatric) (principal)

== ENCOUNTER → 2018-08-06 | Outpatient (CLI) | payer MEDICARE, OTHER ==
--- NOTE | 2018-08-11 10:38 | SLEEPCENT ---
DATE OF PROCEDURE: 08/06/2018 ORDERING PROVIDER: Asif De Leon Nocturnal polysomnography was performed for the titration of pressure therapy in this patient with obstructive sleep apnea. For testing, a Compute Simplus full face mask of medium size was used, 4 cm of water pressure were applied to the circuit,, and the lights were extinguished. 8 hours and 30 minutes of data were reviewed. There were 446 minutes of sleep identified. Sleep latency was short at 5.6 minutes. Rapid eye movement (REM) latency was short at 36.5 minutes. Sleep architecture was good with five REM cycles. Overall sleep efficiency was 89%. The patient's electrocardiogram showed a sinus rhythm with an average heart rate of 48 beats per minute. Electroencephalogram (EEG) showed normal waveforms for awake and sleep. Respiratory events were fully palliated with C-PAP of pressure of +7. Some limb activity was noted early in the study, which improved later in the test. Arousals occurred only three times per hour. IMPRESSION: Obstructive sleep apnea syndrome (G47.33). RECOMMENDATIONS: Nightly use of pressure therapy 7 cm of water.
== END ==
LOC: M SLEEP 19:42
PROVIDERS: ATTEND Physician Assistant
DX: G47.33 Obstructive sleep apnea (adult) (pediatric) (principal)

== ENCOUNTER → 2018-09-28 | Outpatient (REF) | payer MEDICARE, OTHER ==
[~2018-09-28] MED LIST changes: +CRES10TA PO; -CRES10TA32 PO
[2018-09-28 11:41] LABS: ALBUMIN 3.4 GM/DL (3.2-5.2); ALT/SGPT 39 U/L (12-78); BILIRUBIN,TOTAL 1.4 MG/DL (0.2-1.0); BLOOD UREA NITROGEN 15 MG/DL (7-18); CALCIUM LEVEL 8.3 MG/DL (8.8-10.2); CARBON DIOXIDE LEVEL 28 MEQ/L (21-32); CHLORIDE LEVEL 108 MEQ/L (98-107); CHOLESTEROL LEVEL 145 MG/DL (<200); CHOLESTEROL RISK RATIO 3.625 (<5); CREATININE FOR GFR 1.16 MG/DL (0.70-1.30); FREE T4 1.16 NG/DL (0.76-1.46); GLOMERULAR FILTRATION RATE > 60.0 (>49); GLUCOSE, FASTING 100 MG/DL (70-100); HDL CHOLESTEROL 40 MG/DL (>40); LDL CHOLESTEROL 62.4 MG/DL (<100); NON-HDL-C 105 MG/DL; POTASSIUM SERUM 4.6 MEQ/L (3.5-5.1); SODIUM LEVEL 142 MEQ/L (136-145); TOTAL PROTEIN 5.9 GM/DL (6.4-8.2); TRIGLYCERIDES LEVEL 213 MG/DL (<150)
[2018-09-28 12:51] LABS: HEMOGLOBIN A1c 5.7 %
[2018-09-28 14:09] LABS: PTH INTACT 50.5 PG/ML (18.5-88.0)
== END ==
LOC: M SFHCPLAZ 08:33
PROVIDERS: ATTEND Nurse Practitioner Family
DX: E55.9 Vitamin D deficiency, unspecified (principal); E03.9 Hypothyroidism, unspecified; R73.01 Impaired fasting glucose; E78.2 Mixed hyperlipidemia; I10 Essential (primary) hypertension

== ENCOUNTER → 2019-05-13 | Outpatient (REF) | payer MEDICARE, OTHER ==
[~2019-05-13] MED LIST changes: -ALFU10TA2 PO; +ALFU10TA3 PO
[2019-05-13 14:50] LABS: APPEARANCE, URINE CLEAR (CLEAR); BACTERIA, URINE AUTO NEGATIVE (NEGATIVE); BASO % 0.7 % (0.0-1.0); BILIRUBIN, URINE AUTO NEGATIVE (NEGATIVE); BLOOD, URINE BLOOD NEGATIVE (NEGATIVE); COLOR, URINE YELLOW (YELLOW); EOS # 0.2 10^3/uL (0.0-0.5); EOS % 3.1 % (0.0-3.0); GLUCOSE, URINE (UA) AUTO NEGATIVE (NEGATIVE); HEMATOCRIT 48.9 % (42.0-52.0); HEMOGLOBIN 16.4 g/dl (13.5-17.5); KETONE, URINE AUTO NEGATIVE (NEGATIVE); LEUKOCYTE ESTERASE, URINE AUTO NEGATIVE (NEGATIVE); LYMPH % 32.5 % (24.0-44.0); MEAN CORPUSCULAR HEMOGLOBIN 30.2 pg (27.0-33.0); MEAN CORPUSCULAR HGB CONC 33.5 g/dl (32.0-36.5); MEAN CORPUSCULAR VOLUME 90.1 fl (80.0-96.0); MONO # 0.6 10^3/uL (0.0-0.8); MONO % 9.4 % (0.0-5.0); MUCUS, URINE SMALL (NEGATIVE); NEUTROPHILS # 3.3 10^3/uL (1.5-8.5); NEUTROPHILS % 54.1 % (36.0-66.0); NITRITE, URINE AUTO NEGATIVE (NEGATIVE); PLATELET COUNT, AUTOMATED 221 10^3/uL (150-450); PROTEIN, URINE AUTO 3+ mg/dL (NEGATIVE); RBC, URINE AUTO 4 /HPF (0-3); RED BLOOD COUNT 5.43 10^6/uL (4.30-6.10); SPECIFIC GRAVITY URINE AUTO 1.022 (1.002-1.035); SQUAMOUS EPITHELIAL CELL UR AU 0 /HPF (0-6); UROBILINOGEN, URINE AUTO 0.2 mg/dL (0.0-2.0); WBC, URINE AUTO 2 /HPF (0-3); WHITE BLOOD COUNT 6.1 10^3/uL (4.0-10.0)
[2019-05-13 15:06] LABS: ALBUMIN 3.5 GM/DL (3.2-5.2); BILIRUBIN,TOTAL 1.8 MG/DL (0.2-1.0); CALCIUM LEVEL 8.8 MG/DL (8.8-10.2); CREATININE FOR GFR 1.27 MG/DL (0.70-1.30); FREE T4 1.11 NG/DL (0.76-1.46); GLOMERULAR FILTRATION RATE 59.9 (>49); POTASSIUM SERUM 4.2 MEQ/L (3.5-5.1); THYROID STIMULATING HORMONE 1.87 uIU/ML (0.358-3.740); TOTAL PROTEIN 6.6 GM/DL (6.4-8.2)
[2019-05-13 15:27] LABS: MAU/CREAT RATIO 2456.1 MCG/MG (0.0-30.0)
== END ==
LOC: M SFHCPLAZ 10:19
PROVIDERS: ATTEND Family Medicine
DX: E03.9 Hypothyroidism, unspecified (principal); R73.01 Impaired fasting glucose; N18.3 Chronic kidney disease, stage 3 (moderate); Z12.5 Encounter for screening for malignant neoplasm of prostate; N40.1 Benign prostatic hyperplasia with lower urinary tract symptoms; Z23 Encounter for immunization
CPT/HCPCS: 36415; 80053; 81001; 82043; 82607; 83525; 84439; 84443; 85025; 85046; 90682; G0008; G0103; G0463

== ENCOUNTER → 2019-05-28 | Outpatient (CLI) | payer MEDICARE, OTHER ==
[~2019-05-28] MED LIST changes: +ISOVUE-370 76% 100ML VIAL (Q9967) As Ordered ONE
--- NOTE | 2019-05-28 10:57 | REP ---
CT ANGIOGRAM CHEST: TECHNIQUE: Axial contrast enhanced images from the thoracic inlet to the upper abdomen using 100 mL Isovue 370 intravenous contrast material with multiplanar reformations. COMPARISON: 04/17/2018 Once again, there is mild ectasia of the ascending thoracic aorta, maximum AP diameter 4 cm. There is no dissection. There is no evidence of pulmonary embolism. Heart is normal in size. There is no pleural or pericardial effusion. There is no mediastinal, hilar, or chest wall lymphadenopathy. Lungs are clear with no infiltrate. Visualized upper abdominal structures are unremarkable. There are diffuse degenerative changes of the spine. IMPRESSION: Stable CT findings with mild ectasia of the ascending thoracic aorta, maximum diameter in the AP dimension 4 cm. No acute findings. Electronically Signed by Rony Mendez MD 05/28/2019 04:46 P
== END ==
LOC: M RAD 08:09
PROVIDERS: ATTEND Family Medicine
DX: I71.2 Thoracic aortic aneurysm, without rupture (principal)
CPT/HCPCS: 71275; Q9967

== ENCOUNTER → 2019-09-15 | Outpatient (REF) | payer MEDICARE, OTHER ==
[~2019-09-15] MED LIST changes: -ISOVUE-370 76% 100ML VIAL (Q9967) As Ordered ONE
[2019-09-15 11:21] LABS: BASO # 0.1 10^3/uL (0.0-0.2); EOS # 0.3 10^3/uL (0.0-0.5); EOS % 5.7 % (0.0-3.0); HEMATOCRIT 49.3 % (42.0-52.0); HEMOGLOBIN 16.9 g/dl (13.5-17.5); LYMPH % 39.1 % (24.0-44.0); MEAN CORPUSCULAR HEMOGLOBIN 30.7 pg (27.0-33.0); MEAN CORPUSCULAR HGB CONC 34.3 g/dl (32.0-36.5); MEAN CORPUSCULAR VOLUME 89.5 fl (80.0-96.0); MONO # 0.6 10^3/uL (0.0-0.8); MONO % 10.8 % (0.0-5.0); NEUTROPHILS # 2.2 10^3/uL (1.5-8.5); NEUTROPHILS % 43.2 % (36.0-66.0); PLATELET COUNT, AUTOMATED 240 10^3/uL (150-450); RED BLOOD COUNT 5.51 10^6/uL (4.30-6.10); WHITE BLOOD COUNT 5.1 10^3/uL (4.0-10.0)
[2019-09-15 11:22] LABS: ALBUMIN 3.5 GM/DL (3.2-5.2); BILIRUBIN,TOTAL 1.6 MG/DL (0.2-1.0); CALCIUM LEVEL 8.7 MG/DL (8.8-10.2); CHOLESTEROL RISK RATIO 3.34 (<5); CREATININE FOR GFR 1.3 MG/DL (0.70-1.30); GLOMERULAR FILTRATION RATE 58.3 (>49); POTASSIUM SERUM 4.1 MEQ/L (3.5-5.1); TOTAL PROTEIN 6.2 GM/DL (6.4-8.2)
[2019-09-15 11:40] LABS: HEMOGLOBIN A1c 5.8 %
[2019-09-15 11:43] LABS: TOTAL PROTEIN,RANDOM URINE 380.8 MG/DL (0.0-12.0)
== END ==
LOC: M SFHCCLAY 07:53
PROVIDERS: ATTEND Family Medicine
DX: R73.01 Impaired fasting glucose (principal); Z79.899 Other long term (current) drug therapy

== ENCOUNTER → 2019-12-23 | Outpatient (CLI) | payer SELFPAY ==
[~2019-12-23] MED LIST changes: -ASPI81TA85 PO; +ASPI81TA86 PO
== END ==
LOC: M LABSMTC 13:38
PROVIDERS: ATTEND Pediatrics
DX: Z03.818 Encounter for observation for suspected exposure to other biological agents ruled out (principal); Z11.59 Encounter for screening for other viral diseases

== ENCOUNTER → 2020-02-02 | Outpatient (CLI) | payer MEDICARE, OTHER ==
[2020-02-02 12:57] LABS: APPEARANCE, URINE CLEAR (CLEAR); BACTERIA, URINE AUTO NEGATIVE (NEGATIVE); BILIRUBIN, URINE AUTO NEGATIVE (NEGATIVE); BLOOD, URINE BLOOD 1+ (NEGATIVE); COLOR, URINE YELLOW (YELLOW); GLUCOSE, URINE (UA) AUTO NEGATIVE (NEGATIVE); KETONE, URINE AUTO NEGATIVE (NEGATIVE); LEUKOCYTE ESTERASE, URINE AUTO NEGATIVE (NEGATIVE); NITRITE, URINE AUTO NEGATIVE (NEGATIVE); PROTEIN, URINE AUTO 2+ mg/dL (NEGATIVE); RBC, URINE AUTO 0 /HPF (0-3); SPECIFIC GRAVITY URINE AUTO 1.018 (1.002-1.035); SQUAMOUS EPITHELIAL CELL UR AU 0 /HPF (0-6); UROBILINOGEN, URINE AUTO 0.2 mg/dL (0.0-2.0); WBC, URINE AUTO 1 /HPF (0-3)
[2020-02-02 12:59] LABS: HEMATOCRIT 47.3 % (42.0-52.0); HEMOGLOBIN 15.8 g/dl (13.5-17.5); MEAN CORPUSCULAR HGB CONC 33.4 g/dl (32.0-36.5); MEAN CORPUSCULAR VOLUME 89.8 fl (80.0-96.0); PLATELET COUNT, AUTOMATED 204 10^3/uL (150-450); RED BLOOD COUNT 5.27 10^6/uL (4.30-6.10); WHITE BLOOD COUNT 5.2 10^3/uL (4.0-10.0)
[2020-02-02 13:13] LABS: C REACTIVE PROTEIN QUANTITATIV < 0.30 MG/DL (0.00-0.30); FREE T4 1.05 NG/DL (0.76-1.46); RHEUMATOID FACTOR QUANT < 10.0 IU/ML (<15.0); SODIUM LEVEL 140 MEQ/L (136-145)
[2020-02-02 13:39] LABS: ERYTHROCYTE SEDIMENTATION RATE 6 mm/hr (0-20)
[2020-02-02 14:02] LABS: MAU/CREAT RATIO 2561.1 MCG/MG (0.0-30.0); TOTAL PROTEIN,RANDOM URINE 374.8 MG/DL (0.0-12.0)
[2020-02-02 14:14] LABS: HEMOGLOBIN A1c 5.6 %
[2020-02-04 00:08] LABS: ANTINUCLEAR ANTIBODIES DIRECT Negative (Negative); CYCLIC CITRULLINATED PEPTIDE 28 units (0-19); INSULIN LEVEL 12.2 uIU/mL (2.6-24.9)
== END ==
LOC: M PLALAB 08:54
PROVIDERS: ATTEND Family Medicine
DX: R73.01 Impaired fasting glucose (principal); E03.9 Hypothyroidism, unspecified; N18.3 Chronic kidney disease, stage 3 (moderate)
CPT/HCPCS: 36415; 81001; 82043; 82570; 83036; 83525; 84156; 84295; 84439; 84443; 85027; 85652; 86038; 86140; 86200; 86431; G0103

== ENCOUNTER → 2021-02-01 | Outpatient (CLI) | payer MEDICARE, OTHER ==
[2021-02-01 14:18] LABS: BASO % 0.6 % (0.0-1.0); EOS # 0.2 10^3/uL (0.0-0.5); EOS % 2.7 % (0.0-3.0); HEMATOCRIT 48.8 % (42.0-52.0); HEMOGLOBIN 16.1 g/dl (13.5-17.5); LYMPH # 1.9 10^3/uL (1.5-5.0); MEAN CORPUSCULAR HEMOGLOBIN 30.2 pg (27.0-33.0); MEAN CORPUSCULAR VOLUME 91.6 fl (80.0-96.0); MONO # 0.6 10^3/uL (0.0-0.8); NEUTROPHILS # 3.6 10^3/uL (1.5-8.5); NEUTROPHILS % 57.5 % (36.0-66.0); PLATELET COUNT, AUTOMATED 212 10^3/uL (150-450); RED BLOOD COUNT 5.33 10^6/uL (4.30-6.10); WHITE BLOOD COUNT 6.2 10^3/uL (4.0-10.0)
[2021-02-01 16:39] LABS: ALBUMIN 3.3 GM/DL (3.2-5.2); ALT/SGPT 38 U/L (12-78); BILIRUBIN,DIRECT 0.4 MG/DL (0.0-0.2); BLOOD UREA NITROGEN 20 MG/DL (7-18); CALCIUM LEVEL 9.1 MG/DL (8.8-10.2); CARBON DIOXIDE LEVEL 26 MEQ/L (21-32); CHLORIDE LEVEL 107 MEQ/L (98-107); CHOLESTEROL LEVEL 191 MG/DL (<200); CHOLESTEROL RISK RATIO 3.537 (<5); FERRITIN 158 NG/ML (26-388); FREE T4 1.06 NG/DL (0.76-1.46); GLOMERULAR FILTRATION RATE > 60.0 (>42); GLUCOSE, FASTING 76 MG/DL (70-100); HDL CHOLESTEROL 54 MG/DL (>40); LDL CHOLESTEROL 94 MG/DL (<100); NON-HDL-C 137 MG/DL; POTASSIUM SERUM 4.8 MEQ/L (3.5-5.1); SODIUM LEVEL 139 MEQ/L (136-145); TOTAL PROTEIN 6.1 GM/DL (6.4-8.2); TRIGLYCERIDES LEVEL 217 MG/DL (<150)
[2021-02-01 17:52] LABS: HEMOGLOBIN A1c 5.5 %
== END ==
LOC: M PLALAB 12:09
PROVIDERS: ATTEND Family Medicine
DX: E03.9 Hypothyroidism, unspecified (principal); E55.9 Vitamin D deficiency, unspecified; I12.9 Hypertensive chronic kidney disease with stage 1 through stage 4 chronic kidney disease, or unspecified chronic kidney disease; E53.8 Deficiency of other specified B group vitamins; N18.30 Chronic kidney disease, stage 3 unspecified; R73.01 Impaired fasting glucose; R17 Unspecified jaundice; N41.0 Acute prostatitis
CPT/HCPCS: 36415; 80053; 80061; 82248; 82306; 82728; 83036; 83525; 83970; 84439; 84443; 85025; G0103

== ENCOUNTER → 2021-02-20 | Outpatient (CLI) | payer MEDICARE, OTHER ==
--- NOTE | 2021-02-20 09:01 | REP ---
INDICATION: ELEVATED BILIRUBIN. COMPARISON: 01/20/2017. TECHNIQUE: Real-time sonographic evaluation of right upper quadrant performed. FINDINGS: The gallbladder demonstrates no evidence of intraluminal sludge or calculi, wall thickening or pericholecystic fluid. There is no intrahepatic or extrahepatic biliary dilatation, common bile duct measures 4 mm in maximum diameter. There is diffuse increased echotexture of the liver suggesting diffuse fibrofatty infiltration. No gross mass is seen. The visualized pancreas is grossly unremarkable, the pancreas is not well visualized due to overlying bowel gas. The right kidney demonstrates no hydronephrosis, with a normal size of 10.9 cm in length. No free fluid is seen. IMPRESSION: Findings compatible with diffuse fibrofatty infiltration of the liver. No gross liver mass. No biliary dilatation. <Electronically signed by Rony Mendez > 02/20/21 [id number]
== END ==
LOC: M RAD 07:38
PROVIDERS: ATTEND Family Medicine
DX: R17 Unspecified jaundice (principal)

== ENCOUNTER → 2021-10-19 | Outpatient (CLI) | payer MEDICARE, OTHER ==
[2021-10-19 13:36] LABS: INR 0.94; TOTAL PROTEIN,RANDOM URINE 816.7 MG/DL (0.0-12.0)
[2021-10-19 13:37] LABS: PARTIAL THROMBOPLASTIN TIME 36.3 SECONDS (25.9-37.0)
[2021-10-19 13:38] LABS: ALBUMIN 3.6 GM/DL (3.2-5.2); BILIRUBIN,TOTAL 2.2 MG/DL (0.2-1.0); CALCIUM LEVEL 9.6 MG/DL (8.8-10.2); CREATININE FOR GFR 1.46 MG/DL (0.70-1.30); GLOMERULAR FILTRATION RATE 50.7 (>42); POTASSIUM SERUM 5.6 MEQ/L (3.5-5.1); TOTAL PROTEIN 6.5 GM/DL (6.4-8.2)
[2021-10-19 13:44] LABS: PTH INTACT 48.4 PG/ML (18.5-88.0)
== END ==
LOC: M PLALAB 10:35
PROVIDERS: ATTEND Family Medicine
DX: I12.9 Hypertensive chronic kidney disease with stage 1 through stage 4 chronic kidney disease, or unspecified chronic kidney disease (principal); N18.30 Chronic kidney disease, stage 3 unspecified; R17 Unspecified jaundice

== ENCOUNTER → 2021-11-08 | Outpatient (CLI) | payer MEDICARE, OTHER ==
[2021-11-08 15:23] LABS: BASO % 0.8 % (0.0-1.0); EOS # 0.2 10^3/uL (0.0-0.5); EOS % 4.4 % (0.0-3.0); HEMATOCRIT 47.2 % (42.0-52.0); HEMOGLOBIN 15.5 g/dl (13.5-17.5); LYMPH # 1.5 10^3/uL (1.5-5.0); LYMPH % 31.8 % (24.0-44.0); MEAN CORPUSCULAR HEMOGLOBIN 29.9 pg (27.0-33.0); MEAN CORPUSCULAR HGB CONC 32.8 g/dl (32.0-36.5); MEAN CORPUSCULAR VOLUME 91.1 fl (80.0-96.0); MONO # 0.4 10^3/uL (0.0-0.8); MONO % 8.4 % (2.0-8.0); NEUTROPHILS # 2.6 10^3/uL (1.5-8.5); NEUTROPHILS % 54.4 % (36.0-66.0); PLATELET COUNT, AUTOMATED 222 10^3/uL (150-450); RED BLOOD COUNT 5.18 10^6/uL (4.30-6.10); WHITE BLOOD COUNT 4.8 10^3/uL (4.0-10.0)
[2021-11-08 15:48] LABS: ALBUMIN 3.5 GM/DL (3.2-5.2); ALT/SGPT 39 U/L (12-78); BILIRUBIN,TOTAL 1.3 MG/DL (0.2-1.0); BLOOD UREA NITROGEN 19 MG/DL (7-18); CALCIUM LEVEL 9.4 MG/DL (8.8-10.2); CARBON DIOXIDE LEVEL 30 MEQ/L (21-32); CHLORIDE LEVEL 109 MEQ/L (98-107); CREATININE FOR GFR 1.27 MG/DL (0.70-1.30); FERRITIN 105 NG/ML (26-388); GLOMERULAR FILTRATION RATE 59.5 (>42); GLUCOSE, FASTING 95 MG/DL (70-100); IRON (FE) 79 UG/DL (65-175); PERCENT SATURATION 27.1 % (19.7-50.0); POTASSIUM SERUM 5.3 MEQ/L (3.5-5.1); SODIUM LEVEL 142 MEQ/L (136-145); TOTAL IRON BINDING CAPACITY 292 UG/DL (250-450); TOTAL PROTEIN 6.4 GM/DL (6.4-8.2)
[2021-11-08 15:54] LABS: TOTAL 25(OH) VITAMIN D 63.7 NG/ML (30.0-100.0)
[2021-11-08 16:06] LABS: HEPATITIS B SURFACE ANTIGEN NEGATIVE (NEGATIVE)
[2021-11-08 16:34] LABS: HEPATITIS C VIRUS ABY INDEX 0.1 INDEX (<0.8)
[2021-11-09 14:12] LABS: ALBUMIN 3.92 GM/DL (3.29-5.55); ALBUMIN % 61.2 % (55.8-66.1); ALPHA-1-GLOBULIN % 4.3 % (2.9-4.9); ALPHA-1-GLOBULINS 0.28 GM/DL (0.17-0.41); ALPHA-2-GLOBULINS 0.72 GM/DL (0.42-0.99); ALPHA-2-GLOBULINS % 11.3 % (7.1-11.8); BETA-1-GLOBULINS 0.37 GM/DL (0.28-0.60); BETA-1-GLOBULINS % 5.8 % (4.7-7.2); BETA-2-GLOBULINS % 4.7 % (3.2-6.5); GAMMA GLOBULIN % 12.7 % (11.1-18.8); GAMMA GLOBULINS 0.81 GM/DL (0.65-1.58)
[2021-11-09 23:08] LABS: ANA (HEP2) Negative (.); ANTI-MITOCHONDRIAL ANTIBODY <20.0 Units (0.0-20.0)
== END ==
LOC: M PLALAB 10:08
PROVIDERS: ATTEND Family Medicine
DX: K74.60 Unspecified cirrhosis of liver (principal); I12.9 Hypertensive chronic kidney disease with stage 1 through stage 4 chronic kidney disease, or unspecified chronic kidney disease; E55.9 Vitamin D deficiency, unspecified; N18.30 Chronic kidney disease, stage 3 unspecified

== ENCOUNTER → 2021-11-16 | Outpatient (REF) | payer MEDICARE, OTHER ==
[2021-11-16 11:45] LABS: CREATININE, URINE 77.8 MG/DL; URINE TOTAL PROTEIN 210.5 MG/DL (0-12)
[2021-11-16 19:18] LABS: CREATININE 24 HOUR, URINE 1750.5 MG/24HR (950-2500); TOTAL PROTEIN 24 HOUR URINE 4736.2 MG/24HR (50-150)
== END ==
LOC: M SFHCPLAZ 09:59
PROVIDERS: ATTEND Family Medicine
DX: N40.1 Benign prostatic hyperplasia with lower urinary tract symptoms (principal)

== ENCOUNTER → 2021-11-26 | Outpatient (CLI) | payer MEDICARE, OTHER | LOC: M RAD 15:45 | PROVIDERS: ATTEND Family Medicine | DX: N40.1 Benign prostatic hyperplasia with lower urinary tract symptoms (principal) ==

== ENCOUNTER → 2021-12-03 | Outpatient (CLI) | payer MEDICARE, OTHER | LOC: M RAD 07:48 | PROVIDERS: ATTEND Family Medicine | DX: N18.30 Chronic kidney disease, stage 3 unspecified (principal); K74.60 Unspecified cirrhosis of liver; K82.4 Cholesterolosis of gallbladder; K76.0 Fatty (change of) liver, not elsewhere classified; N40.0 Benign prostatic hyperplasia without lower urinary tract symptoms ==

== ENCOUNTER → 2022-03-14 | Outpatient (CLI) | payer MEDICARE, OTHER ==
[~2022-03-14] MED LIST changes: -BENI1TAB3 PO; -BENI40TA30 PO; +OLME-3 PO; +OLME20TA55 PO
[2022-03-14 14:19] LABS: ALBUMIN 3.6 GM/DL (3.2-5.2); BLOOD UREA NITROGEN 21 MG/DL (7-18); CALCIUM LEVEL 9.2 MG/DL (8.8-10.2); CARBON DIOXIDE LEVEL 29 MEQ/L (21-32); CHLORIDE LEVEL 105 MEQ/L (98-107); CREATININE FOR GFR 1.25 MG/DL (0.70-1.30); FREE T4 1.13 NG/DL (0.76-1.46); GLOMERULAR FILTRATION RATE > 60.0 (>42); GLUCOSE, FASTING 106 MG/DL (70-100); NT-PRO BNP 110 PG/ML (<125); POTASSIUM SERUM 4.4 MEQ/L (3.5-5.1); SODIUM LEVEL 138 MEQ/L (136-145)
[2022-03-14 14:37] LABS: THYROGLOBULIN ANTIBODY 420.1 U/ML (<60.0); TOTAL PROTEIN,RANDOM URINE 362.8 MG/DL (0.0-12.0)
== END ==
LOC: M PLALAB 08:49
PROVIDERS: ATTEND Family Medicine
DX: N02.2 Recurrent and persistent hematuria with diffuse membranous glomerulonephritis (principal); E55.9 Vitamin D deficiency, unspecified; I10 Essential (primary) hypertension; E03.9 Hypothyroidism, unspecified

== ENCOUNTER → 2022-06-19 | Outpatient (CLI) | payer MEDICARE, OTHER ==
[2022-06-19 14:03] LABS: CREATININE,RANDOM URINE 86.9 MG/DL
[2022-06-19 14:06] LABS: HEMOGLOBIN A1c 5.3 % (4.0-6.0); TOTAL PROTEIN,RANDOM URINE 301.2 MG/DL (0.0-14.0)
[2022-06-19 14:08] LABS: THYROID STIMULATING HORMONE 0.883 uIU/ML (0.55-4.78)
[2022-06-19 14:09] LABS: ALBUMIN 3.6 G/DL (3.2-5.2); CALCIUM LEVEL 9.5 MG/DL (8.3-10.6); CHOLESTEROL RISK RATIO 3.29 (<5); CREATININE FOR GFR 1.27 MG/DL (0.70-1.30); GLOMERULAR FILTRATION RATE 59.3 (>42); HDL CHOLESTEROL 47.3 MG/DL (>40); LDL CHOLESTEROL 81.3 MG/DL (<100); POTASSIUM SERUM 5.6 MMOL/L (3.5-5.1); TOTAL PROTEIN 6.5 G/DL (5.7-8.2)
[2022-06-19 14:10] LABS: FREE T4 1.46 NG/DL (0.89-1.76)
[2022-06-21 14:08] LABS: APOLIPOPROTEIN B/A-1 RATIO 0.5 ratio (0.0-0.7); INSULIN LEVEL 15.9 uIU/mL (2.6-24.9)
== END ==
LOC: M PLALAB 10:29
PROVIDERS: ATTEND Family Medicine
DX: E03.9 Hypothyroidism, unspecified (principal); Z12.5 Encounter for screening for malignant neoplasm of prostate; N02.2 Recurrent and persistent hematuria with diffuse membranous glomerulonephritis; R73.01 Impaired fasting glucose
CPT/HCPCS: 36415; 80053; 80061; 82172; 82570; 83036; 83516; 83525; 84156; 84439; 84443; G0103

== ENCOUNTER → 2022-10-21 | Outpatient (REF) | payer MEDICARE, OTHER | LOC: M SFHCPLAZ 09:57 | PROVIDERS: ATTEND Family Medicine | DX: Z12.5 Encounter for screening for malignant neoplasm of prostate (principal); N02.2 Recurrent and persistent hematuria with diffuse membranous glomerulonephritis; E55.9 Vitamin D deficiency, unspecified; K74.60 Unspecified cirrhosis of liver; I10 Essential (primary) hypertension ==

== ENCOUNTER → 2022-10-24 | Outpatient (CLI) | payer MEDICARE, OTHER ==
[2022-10-24 11:29] LABS: APPEARANCE, URINE HAZY (CLEAR); BACTERIA, URINE AUTO NEGATIVE (NEGATIVE); BILIRUBIN, URINE AUTO NEGATIVE (NEGATIVE); BLOOD, URINE BLOOD NEGATIVE (NEGATIVE); COLOR, URINE YELLOW (YELLOW); GLUCOSE, URINE (UA) AUTO NEGATIVE (NEGATIVE); KETONE, URINE AUTO TRACE mg/dL (NEGATIVE); LEUKOCYTE ESTERASE, URINE AUTO NEGATIVE (NEGATIVE); MUCUS, URINE SMALL (NEGATIVE); NITRITE, URINE AUTO NEGATIVE (NEGATIVE); PROTEIN, URINE AUTO 3+ mg/dL (NEGATIVE); RBC, URINE AUTO 0 /HPF (0-3); SPECIFIC GRAVITY URINE AUTO 1.024 (1.002-1.035); SQUAMOUS EPITHELIAL CELL UR AU 1 /HPF (0-6); UROBILINOGEN, URINE AUTO 0.2 mg/dL (0.0-2.0); WBC, URINE AUTO 4 /HPF (0-3)
[2022-10-24 11:33] LABS: BASO % 0.7 % (0.0-1.0); EOS # 0.3 10^3/uL (0.0-0.5); EOS % 4.4 % (0.0-3.0); HEMATOCRIT 48.3 % (42.0-52.0); HEMOGLOBIN 16.1 g/dl (13.5-17.5); LYMPH # 1.8 10^3/uL (1.5-5.0); LYMPH % 31.1 % (24.0-44.0); MEAN CORPUSCULAR HEMOGLOBIN 29.7 pg (27.0-33.0); MEAN CORPUSCULAR HGB CONC 33.3 g/dl (32.0-36.5); MONO # 0.6 10^3/uL (0.0-0.8); MONO % 9.8 % (2.0-8.0); NEUTROPHILS % 53.8 % (36.0-66.0); PLATELET COUNT, AUTOMATED 205 10^3/uL (150-450); RED BLOOD COUNT 5.43 10^6/uL (4.30-6.10); WHITE BLOOD COUNT 5.6 10^3/uL (4.0-10.0)
[2022-10-24 11:35] LABS: ALBUMIN 3.6 G/DL (3.2-5.2); BILIRUBIN,TOTAL 1.6 MG/DL (0.3-1.2); CALCIUM LEVEL 9.2 MG/DL (8.3-10.6); CREATININE FOR GFR 1.35 MG/DL (0.70-1.30); GLOMERULAR FILTRATION RATE 55.3 (>42); POTASSIUM SERUM 4.8 MMOL/L (3.5-5.1); PTH INTACT 48.4 PG/ML (18.5-88.0); TOTAL PROTEIN 6.2 G/DL (5.7-8.2)
[2022-10-24 11:37] LABS: TOTAL 25(OH) VITAMIN D 56.9 NG/ML (20.0-100.0)
[2022-10-24 11:54] LABS: HEMOGLOBIN A1c 5.4 % (4.0-6.0)
[2022-10-24 11:59] LABS: CREATININE,RANDOM URINE 190.6 MG/DL
[2022-10-24 12:01] LABS: TOTAL PROTEIN,RANDOM URINE 644.6 MG/DL (0.0-14.0)
== END ==
LOC: M PLALAB 07:43
PROVIDERS: ATTEND Family Medicine
DX: Z12.5 Encounter for screening for malignant neoplasm of prostate (principal); N40.1 Benign prostatic hyperplasia with lower urinary tract symptoms; N02.2 Recurrent and persistent hematuria with diffuse membranous glomerulonephritis; E55.9 Vitamin D deficiency, unspecified; K74.60 Unspecified cirrhosis of liver; I10 Essential (primary) hypertension
CPT/HCPCS: 36415; 80053; 81001; 82105; 82306; 82570; 83036; 83880; 83970; 84156; 85025; 87086; G0103

== ENCOUNTER → 2022-11-18 | Outpatient (CLI) | payer MEDICARE, OTHER ==
[2022-11-18 14:22] LABS: ALBUMIN 3.5 G/DL (3.2-5.2); ALKALINE PHOSPHATASE 69 U/L (46-116); ALT/SGPT 35 U/L (7.0-40); AST/SGOT 27 U/L (<34); BILIRUBIN,TOTAL 1.5 MG/DL (0.3-1.2); BLOOD UREA NITROGEN 19 MG/DL (9-23); CALCIUM LEVEL 8.6 MG/DL (8.3-10.6); CARBON DIOXIDE LEVEL 30 MMOL/L (20-31); CHLORIDE LEVEL 105 MMOL/L (98-107); CREATININE FOR GFR 1.24 MG/DL (0.70-1.30); GLOMERULAR FILTRATION RATE > 60.0 (>42); GLUCOSE, FASTING 116 MG/DL (74-106); POTASSIUM SERUM 5.1 MMOL/L (3.5-5.1); SODIUM LEVEL 140 MMOL/L (136-145); TOTAL PROTEIN 5.8 G/DL (5.7-8.2)
== END ==
LOC: M PLALAB 10:48
PROVIDERS: ATTEND Physician Assistant
DX: N41.0 Acute prostatitis (principal)

== ENCOUNTER → 2022-11-22 | Outpatient (CLI) | payer MEDICARE, OTHER | LOC: M WHC 07:58 | PROVIDERS: ATTEND Family Medicine | DX: K74.60 Unspecified cirrhosis of liver (principal) ==

== ENCOUNTER → 2023-02-12 | Outpatient (CLI) | payer MEDICARE, OTHER | LOC: M RAD 09:02 | PROVIDERS: ATTEND Family Medicine | DX: Z12.2 Encounter for screening for malignant neoplasm of respiratory organs (principal); Z87.891 Personal history of nicotine dependence ==

== ENCOUNTER → 2023-04-09 | Outpatient (REF) | payer MEDICARE, OTHER ==
[2023-04-09 14:15] LABS: APPEARANCE, URINE CLEAR (CLEAR); BACTERIA, URINE AUTO NEGATIVE (NEGATIVE); BILIRUBIN, URINE AUTO NEGATIVE (NEGATIVE); BLOOD, URINE BLOOD NEGATIVE (NEGATIVE); COLOR, URINE AMBER (YELLOW); GLUCOSE, URINE (UA) AUTO NEGATIVE (NEGATIVE); KETONE, URINE AUTO TRACE mg/dL (NEGATIVE); LEUKOCYTE ESTERASE, URINE AUTO NEGATIVE (NEGATIVE); MUCUS, URINE SMALL (NEGATIVE); NITRITE, URINE AUTO NEGATIVE (NEGATIVE); PROTEIN, URINE AUTO 3+ mg/dL (NEGATIVE); RBC, URINE AUTO 0 /HPF (0-3); SPECIFIC GRAVITY URINE AUTO 1.026 (1.002-1.035); SQUAMOUS EPITHELIAL CELL UR AU 0 /HPF (0-6); UROBILINOGEN, URINE AUTO 0.2 mg/dL (0.0-2.0); WBC, URINE AUTO 1 /HPF (0-3)
== END ==
LOC: M SFHCPLAZ 12:51
PROVIDERS: ATTEND Physician Assistant
DX: J02.9 Acute pharyngitis, unspecified (principal); R35.0 Frequency of micturition

== ENCOUNTER → 2023-10-06 | Outpatient (CLI) | payer MEDICARE, OTHER ==
[~2023-10-06] MED LIST changes: +FLOM0.4C39 PO; +KETO10TAB PO
[2023-10-06 13:23] LABS: BASO # 0.1 10^3/uL (0.0-0.2); BASO % 0.8 % (0.0-1.0); EOS # 0.3 10^3/uL (0.0-0.5); EOS % 4.2 % (0.0-3.0); HEMATOCRIT 47.4 % (42.0-52.0); LYMPH # 2.2 10^3/uL (1.5-5.0); MEAN CORPUSCULAR HEMOGLOBIN 29.9 pg (27.0-33.0); MEAN CORPUSCULAR HGB CONC 33.8 g/dl (32.0-36.5); MEAN CORPUSCULAR VOLUME 88.6 fl (80.0-96.0); MONO # 0.7 10^3/uL (0.0-0.8); MONO % 11.1 % (2.0-8.0); NEUTROPHILS # 3.2 10^3/uL (1.5-8.5); NEUTROPHILS % 49.7 % (36.0-66.0); PLATELET COUNT, AUTOMATED 208 10^3/uL (150-450); RED BLOOD COUNT 5.35 10^6/uL (4.30-6.10); WHITE BLOOD COUNT 6.4 10^3/uL (4.0-10.0)
[2023-10-06 13:46] LABS: ALBUMIN 3.4 G/DL (3.2-5.2); BILIRUBIN,TOTAL 1.8 MG/DL (0.3-1.2); CALCIUM LEVEL 9.2 MG/DL (8.3-10.6); CREATININE FOR GFR 1.4 MG/DL (0.70-1.30); GLOMERULAR FILTRATION RATE 52.9 (>42)
[2023-10-06 13:53] LABS: TOTAL PROTEIN,RANDOM URINE 248.2 MG/DL (0.0-14.0)
== END ==
LOC: M PLALAB 10:22
PROVIDERS: ATTEND Family Medicine
DX: N02.2 Recurrent and persistent hematuria with diffuse membranous glomerulonephritis (principal); I10 Essential (primary) hypertension

== ENCOUNTER 2023-10-07 00:39 | Emergency (ER) | payer MEDICARE, OTHER ==
[~2023-10-07] VITALS: Ht 176.5 cm; Wt 93.3 kg
[~2023-10-07 00:39] MED LIST changes: -FLOM0.4C39 PO; -KETO10TAB PO
[2023-10-07 00:40] VITALS: TEMP 97.3
[2023-10-07 01:35] LABS: BASO # 0.1 10^3/uL (0.0-0.2); BASO % 0.8 % (0.0-1.0); EOS # 0.3 10^3/uL (0.0-0.5); EOS % 4.2 % (0.0-3.0); HEMATOCRIT 47.2 % (42.0-52.0); HEMOGLOBIN 16.2 g/dl (13.5-17.5); LYMPH # 2.4 10^3/uL (1.5-5.0); LYMPH % 33.6 % (24.0-44.0); MEAN CORPUSCULAR HEMOGLOBIN 30.2 pg (27.0-33.0); MEAN CORPUSCULAR HGB CONC 34.3 g/dl (32.0-36.5); MEAN CORPUSCULAR VOLUME 87.9 fl (80.0-96.0); MONO # 0.6 10^3/uL (0.0-0.8); MONO % 8.8 % (2.0-8.0); NEUTROPHILS # 3.7 10^3/uL (1.5-8.5); NEUTROPHILS % 52.2 % (36.0-66.0); PLATELET COUNT, AUTOMATED 226 10^3/uL (150-450); RED BLOOD COUNT 5.37 10^6/uL (4.30-6.10); WHITE BLOOD COUNT 7.2 10^3/uL (4.0-10.0)
[2023-10-07] MEDS: ONDANSETRON 4MG 2ML VIAL IV ONE (01:39)
[2023-10-07] MEDS: MORPHINE 4 MG/ML 1ML VIAL IV PRN (01:41)
[2023-10-07 01:53] LABS: ALBUMIN 3.5 G/DL (3.2-5.2); BILIRUBIN,DIRECT 0.3 MG/DL (<0.4); BILIRUBIN,TOTAL 1.2 MG/DL (0.3-1.2); CALCIUM LEVEL 9.2 MG/DL (8.3-10.6); CK-MB VALUE MASS 4.1 NG/ML (<3.6); CREATININE FOR GFR 1.34 MG/DL (0.70-1.30); GLOMERULAR FILTRATION RATE 55.6 (>42); POTASSIUM SERUM 4.2 MMOL/L (3.5-5.1); TOTAL PROTEIN 6.3 G/DL (5.7-8.2)
[2023-10-07 02:00] LABS: MB/CK RELATIVE INDEX 1.84 (< OR =4)
[2023-10-07] MEDS: KETOROLAC 30 MG/ML 1ML VIAL IV ONE (03:54)
[2023-10-07] MEDS ORDERED: KETO10TAB PO (05:23)
[2023-10-07] MEDS ORDERED: FLOM0.4C39 PO (05:23)
[2023-10-07] MEDS: TAMSULOSIN 0.4 MG CAP PO ONE (05:40)
[2023-10-07] MEDS: OXYCODONE/APAP 5MG/325MG(HOME DOSE PACK) PO ONE (05:42)
[2023-10-07 05:45] VITALS: BP 157/80; O2SAT 95
== END 2023-10-07 05:51 | disposition home or self-care (01) ==
LOC: M ED 00:39
DX: N20.1 Calculus of ureter (principal); I10 Essential (primary) hypertension; K21.9 Gastro-esophageal reflux disease without esophagitis; K70.30 Alcoholic cirrhosis of liver without ascites; E03.9 Hypothyroidism, unspecified; N40.0 Benign prostatic hyperplasia without lower urinary tract symptoms
CPT/HCPCS: 74176; 80048; 80076; 81001; 82550; 82553; 83605; 83690; 84145; 84484; 85025; 87040; 87086; 93005; 96374; 96375; 96376; 99284; G0463; J1885; J2405

== ENCOUNTER → 2023-10-07 | Outpatient (REF) | payer MEDICARE, OTHER | LOC: M SFHCPLAZ 11:57 | PROVIDERS: ATTEND Family Medicine | DX: I10 Essential (primary) hypertension (principal); E55.9 Vitamin D deficiency, unspecified; E53.8 Deficiency of other specified B group vitamins; R73.01 Impaired fasting glucose; Z12.5 Encounter for screening for malignant neoplasm of prostate; Z87.442 Personal history of urinary calculi; E78.2 Mixed hyperlipidemia; N40.1 Benign prostatic hyperplasia with lower urinary tract symptoms; R35.1 Nocturia; R35.0 Frequency of micturition ==

== ENCOUNTER → 2023-10-09 | Outpatient (REF) | payer MEDICARE, OTHER ==
[~2023-10-09] MED LIST changes: +FLOM0.4C39 PO; +KETO10TAB PO
== END ==
LOC: M SFHCPLAZ 16:50
PROVIDERS: ATTEND Family Medicine
DX: N20.0 Calculus of kidney (principal)

== ENCOUNTER → 2023-10-14 | Outpatient (REF) | payer MEDICARE, OTHER | LOC: M SFHCPLAZ 16:39 | PROVIDERS: ATTEND Family Medicine | DX: I10 Essential (primary) hypertension (principal); E55.9 Vitamin D deficiency, unspecified; E53.8 Deficiency of other specified B group vitamins; R73.01 Impaired fasting glucose; Z12.5 Encounter for screening for malignant neoplasm of prostate; Z87.442 Personal history of urinary calculi; E78.2 Mixed hyperlipidemia ==

== ENCOUNTER → 2023-12-02 | Outpatient (CLI) | payer MEDICARE, OTHER | LOC: M RAD 08:45 | PROVIDERS: ATTEND Family Medicine | DX: K74.00 Hepatic fibrosis, unspecified (principal); N28.1 Cyst of kidney, acquired; R93.89 Abnormal findings on diagnostic imaging of other specified body structures ==

== ENCOUNTER → 2025-01-03 | Outpatient (CLI) | payer MEDICARE, OTHER ==
[~2025-01-03] MED LIST changes: +ALFU10TA23 PO; -ALFU10TA3 PO; -FLOM0.4C39 PO; +TAMS-18 PO
== END ==
LOC: M RAD 07:23
PROVIDERS: ATTEND Family Medicine
DX: Z12.2 Encounter for screening for malignant neoplasm of respiratory organs (principal); Z87.891 Personal history of nicotine dependence